=== PATIENT | female | born 1990 | race Caucasian/White ===

== ENCOUNTER 2021-03-01 11:40 | Emergency (ER) | payer MEDICAID, SELFPAY ==
[2021-03-01 11:44] VITALS: BP 109/83; PULSE 63; RESP 16; TEMP 36.7; O2SAT 98; BMI 41.3
--- NOTE | 2021-03-01 13:06 | ED.GENADULT ---
HPI - General Adult General Chief complaint: General Medical Stated complaint: hemorrhoids Time Seen by Provider: 03/01/21 13:06 History of Present Illness HPI narrative: Patient with history of hemorrhoids complains that they are slightly more swollen but they are sometimes bleeding, they are not particularly painful and she is here to be checked Related Data Previous Rx's Medication Instructions Recorded docusate sodium 100 mg capsule 100 mg PO BID PRN #20 cap 03/01/21 (Colace) hydrocortisone 2.5 % topical cream 1 appl SD DAILY PRN #30 g 03/01/21 with perineal applicator (Procto-Med HC) hydrocortisone acetate 25 mg 25 mg SD BID PRN #12 ea 03/01/21 rectal suppository (Anusol-HC) Allergies Allergy/AdvReac Type Severity Reaction Status Date / Time No Known Allergies Allergy Mild NOT Unverified 03/18/20 16:45 APPLICABLE Review of Systems Review of Systems: Positive for hemorrhoids Negatives are no fever no chills no dizziness no weakness no fainting no feeling faint no headache no neck pain no chest pain no abdominal pain no nausea vomiting or diarrhea no constipation no skin rashes Yes all other systems are reviewed and are negative Physical Exam Vital Signs: Vital Signs: Last Vital Signs Temp 98.1 F 03/01/21 11:44 Pulse 63 03/01/21 11:44 Resp 16 03/01/21 11:44 BP 109/83 03/01/21 11:44 Pulse Ox 98 03/01/21 11:44 Body Mass Index 41.3 General appearance no acute distress The eyes no pallor The pharynx mucous membranes are moist no pallor The neck is supple Respiratory no distress Abdomen soft nontender Rectal exam there are external hemorrhoids which at this point are not bleeding their pinkish in color, there is no thrombosed hemorrhoid, internal exam was D for Extremities full range of motion x4 Skin no rash Course Course Course Narrative: Patient with external hemorrhoids that are not bleeding now, no thrombosed hemorrhoids is recommend to follow with surgeon and given symptomatic treatment Discharge Plan Discharge Clinical Impression: Hemorrhoids Patient Disposition: Home, Self-Care Additional Instructions: Do frequent warm soaks and bath, use suppository and creams as directed Use stool softener Follow with surgeon for further evaluation Return any time if worse Prescriptions: New hydrocortisone acetate [Anusol-HC] 25 mg suppository 25 mg SD BID PRN (Reason: hemorrhoids) Qty: 12 RF: 0 hydrocortisone [Procto-Med HC] 2.5 % cream with perineal applicator 1 appl SD DAILY PRN (Reason: hemorrhoids) Qty: 30 RF: 0 docusate sodium [Colace] 100 mg capsule 100 mg PO BID PRN (Reason: Stool softener) Qty: 20 RF: 0 Referrals: Neftali Paz MD [Physician] - 2 days (Chronic hemorrhoids) Interventions: ED Discharge Assessment Last Done: 03/01/21 13:44 Discharge Date/Time: 03/01/21 13:45
== END 2021-03-01 13:45 | disposition home or self-care (01) ==
PROVIDERS: Emergency Provider Emergency Medicine; PCP Internal Medicine
DX: K64.9 Unspecified hemorrhoids (principal)
CPT/HCPCS: 99283

== ENCOUNTER 2022-04-02 15:44 | Emergency (ER) | payer MEDICAID, SELFPAY ==
--- NOTE | ~2022-04-02 | XR_ITS ---
EXAMINATION: XR CHEST CLINICAL INFORMATION: Cough COMPARISON: None TECHNIQUE: 2 views of the chest were obtained. FINDINGS: Mild interstitial prominence. No focal consolidation or mass. No pleural effusion or pneumothorax. Normal cardiomediastinal silhouette. Regional skeleton intact. XR/XR chest 2V IMPRESSION: Mild interstitial prominence. This could reflect subtle bronchitis, interstitial pneumonitis, or reactive airways disease.
[2022-04-02 15:48] VITALS: BMI 41.5
--- NOTE | 2022-04-02 15:48 | ECG_ITS ---
Test Reason : CHEST PAIN Blood Pressure : / mmHG Vent. Rate : 083 BPM Atrial Rate : 083 BPM P-R Int : 150 ms QRS Dur : 086 ms QT Int : 362 ms P-R-T Axes : 044 046 042 degrees QTc Int : 425 ms Normal sinus rhythm Normal ECG No previous ECGs available Referred By: Generic ED Physician Electronically Signed By:JEANINE BURKETT
[2022-04-02 16:35] VITALS: BP 115/79; PULSE 74; RESP 16; TEMP 35.9; O2SAT 99; BMI 40.6
--- NOTE | 2022-04-02 17:02 | ED_ITS ---
HPI - Asthma General Chief Complaint: Asthma Stated Complaint: weezing, chest pain Time Seen by Provider: 04/02/22 17:02 History of Present Illness HPI Narrative: Patient complains of intermittent wheezing over the last week associated with cough runny nose congestion, she does get some pain in her chest when she coughs but only when she coughs At this point in time she has no shortness of breath no chest tightness and no wheezing, it has been coming and going it is worst at night Related Data Previous Rx's Medication Instructions Recorded docusate sodium 100 mg capsule 100 mg PO BID PRN Stool softener 03/01/21 (Colace) #20 caps hydrocortisone 2.5 % topical cream 1 appl NV DAILY PRN hemorrhoids 03/01/21 with perineal applicator #30 grams (Procto-Med HC) hydrocortisone acetate 25 mg 25 mg NV BID PRN hemorrhoids #12 ea 03/01/21 rectal suppository (Anusol-HC) albuterol sulfate 90 mcg/actuation 2 puff inhalation Q4-6H PRN 04/02/22 aerosol inhaler shortness of breath or wheezing #8.5 grams doxycycline hyclate 100 mg capsule 100 mg PO BID 7 days #14 caps 04/02/22 oxymetazoline 0.05 % nasal spray 3 spray intranasal Q12H Nasal 04/02/22 congestion 4 days #22 mL prednisone 20 mg tablet 60 mg PO DAILY 4 days #12 tabs 04/02/22 Allergies Allergy/AdvReac Type Severity Reaction Status Date / Time No Known Allergies Allergy Mild NOT Unverified 03/18/20 16:45 APPLICABLE Review of Systems Review of Systems: Positive for runny nose cough asthma symptoms Negative no fever no chills no dizziness no weakness no fainting no feeling faint no headache no neck pain no chest pain other than when she coughs no palpitations no abdominal pain no nausea vomiting or diarrhea no dysuria no skin rash no joint swelling no calf pain no leg swelling Yes all other systems are reviewed and are negative PMFSH Past Medical History Source: nursing notes reviewed Social History Social History Advance Directives: No Advance Directives Information Provided: Yes Physical Exam Vital Signs: Vital Signs: Last Vital Signs Temp 96.7 F L 04/02/22 16:35 Pulse 74 04/02/22 16:35 Resp 16 04/02/22 16:35 BP 115/79 04/02/22 16:35 Pulse Ox 99 04/02/22 16:35 O2 Del Method 04/02/22 16:35 BMI result Body Mass Index 40.6 General appearance is no acute distress The eyes no redness or discharge The pharynx is clear and moist no redness swelling or exudate, voice is normal, uvula midline Sinuses are nontender Neck is supple Chest clear to auscultation bilateral Heart no murmur Abdomen soft nontender Extremities full range of motion x4 no, no calf tenderness or swelling no edema Skin no rash Course Course Course Narrative: EKG done in triage is normal sinus rhythm, no acute ischemic changes no ST changes, intervals were normal, QT was normal patient was comfortable with normal vital signs normal exam Her chest pain is only at certain times with cough there is no exertional chest pain or or any other chest pain Chest x-ray was negative, COVID test was negative and patient was discharged MDM - Asthma Lab Data Labs: Lab Results 04/02/22 Range/Units 17:25 COVID-19 (JAMES) Negative (Negative) COVID-19 Clin Com See Note Discharge Plan Discharge Clinical Impression: Asthma, Bronchitis Patient Disposition: Home, Self-Care Additional Instructions: Chest x-ray was normal, vital signs were normal, your not wheezing now, and physical exam was normal For the intermittent wheezing we have started prednisone and I wrote for an extra inhaler in case he run out For nasal congestion at night you could try oxymetazoline spray available [id number], 2 or 3 sprays in each nostril before bedtime for relief of n lawrence congestion You can use Motrin if needed for any aches or pains Doxycycline antibiotic for possible bronchitis Return any time for difficulty breathing, any worse condition any concerns Prescriptions: New albuterol sulfate 90 mcg/actuation HFA aerosol inhaler 2 puff inhalation Q4-6H PRN (Reason: shortness of breath or wheezing) Qty: 8.5 0RF doxycycline hyclate 100 mg capsule 100 mg PO BID 7 Days Qty: 14 0RF prednisone 20 mg tablet 60 mg PO DAILY 4 Days Qty: 12 0RF oxymetazoline 0.05 % spray,non-aerosol 3 spray intranasal Q12H 4 Days Qty: 22 0RF No Action hydrocortisone acetate [Anusol-HC] 25 mg suppository 25 mg NV BID PRN (Reason: hemorrhoids) Qty: 12 0RF hydrocortisone [Procto-Med HC] 2.5 % cream with perineal applicator 1 appl NV DAILY PRN (Reason: hemorrhoids) Qty: 30 0RF docusate sodium [Colace] 100 mg capsule 100 mg PO BID PRN (Reason: Stool softener) Qty: 20 0RF Interventions: ED Discharge Assessment Last Done: 04/02/22 18:52 Discharge Date/Time: 04/02/22 18:53
[2022-04-02 18:10] LABS: COVID-19 Test Negative (Negative); IDNOW Serial# 9DB6401D
[2022-04-02] MEDS: predniSONE 20 MG TABLET 60 MG PO (18:50)
== END 2022-04-02 18:53 | disposition home or self-care (01) ==
PROVIDERS: Emergency Provider Emergency Medicine Emergency Medical Services
DX: J45.909 Unspecified asthma, uncomplicated (principal); R07.89 Other chest pain; Z20.822 Contact with and (suspected) exposure to COVID-19; Z79.899 Other long term (current) drug therapy
CPT/HCPCS: 71046; 87635; 93005; 99283

== ENCOUNTER 2023-02-22 23:20 | Emergency (ER) | payer MEDICAID, SELFPAY ==
[2023-02-22 23:36] VITALS: BP 131/85; PULSE 72; RESP 19; TEMP 36.3; O2SAT 97; BMI 44.7
--- NOTE | 2023-02-23 00:26 | ED.GENADULT ---
HPI - General Adult General Chief complaint: General Medical Stated complaint: Bloody Stool Time Seen by Provider: 02/22/23 23:58 Source: patient Mode of arrival: ambulatory History of Present Illness HPI narrative: 32-year-old female with a history of constipation and hemorrhoids presents with an isolated episode of noting blood mixed with her stool once this evening, there was a small amount of blood within the toilet bowl and on the toilet paper but no contamination of her underwear. Related Data Previous Rx's Medication Instructions Recorded docusate sodium 100 mg capsule 100 mg PO BID PRN Stool softener 03/01/21 (Colace) #20 caps hydrocortisone 2.5 % topical cream 1 appl SC DAILY PRN hemorrhoids 03/01/21 with perineal applicator #30 grams (Procto-Med HC) hydrocortisone acetate 25 mg 25 mg SC BID PRN hemorrhoids #12 ea 03/01/21 rectal suppository (Anusol-HC) albuterol sulfate 90 mcg/actuation 2 puff inhalation Q4-6H PRN 04/02/22 aerosol inhaler shortness of breath or wheezing #8.5 grams doxycycline hyclate 100 mg capsule 100 mg PO BID 7 days #14 caps 04/02/22 oxymetazoline 0.05 % nasal spray 3 spray intranasal Q12H Nasal 04/02/22 congestion 4 days #22 mL prednisone 20 mg tablet 60 mg PO DAILY 4 days #12 tabs 04/02/22 Allergies Allergy/AdvReac Type Severity Reaction Status Date / Time No Known Allergies Allergy Mild NOT Unverified 03/18/20 16:45 APPLICABLE Review of Systems Review of Systems: pertinent positives and negatives as stated in HPI PMFSH Past Medical History Source: nursing notes reviewed Social History Social History Advance Directives: No Advance Directives Information Provided: Yes Physical Exam ED Vital Signs: Vital Signs - 24 hr 02/22/23 23:36 Temperature 97.4 F Pulse Rate 72 Respiratory Rate 19 Blood Pressure 131/85 Pulse Oximetry 97 Oxygen Delivery Method Room Air BMI result Body Mass Index 44.7 VITAL SIGNS: Reviewed. GENERAL: elevated BMI,Well developed, well nourished, in no acute distress. HEAD: Normocephalic/atraumatic EYES: PERRLA, EOMI LUNGS: Normal breath sounds. No adventitious sounds or accessory muscle use. SpO2<97> CARDIOVASCULAR: Regular rate and rhythm without noted murmurs ABDOMEN: Soft, non-tender, non-distended with bowel sounds. 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 EXTREMITIES: No cyanosis, clubbing or edema. SKIN: Inspection of the skin reveals no rashes NEUROLOGIC: Alert and oriented x 4. Strength and sensation to light touch were grossly intact x 4. Medical Decision Making Medical Decision Making MDM Narrative: 32-year-old female with history and clinical presentation consistent with external hemorrhoidal bleeding likely secondary to her history of constipation which she reports that she had to strain today in order to have the bowel movement. For the counseled patient on the use of [id number] MiraLax on a daily basis until she has daily, soft stools and then this will subsequently relieve some of the inflamed external hemorrhoids. She was also encouraged to follow-up with primary care doctor and discuss the possibility of a referral with general surgery for possible hemorrhoid removal. I have no concerns that this is a lower GI bleed. Patient is completely hemodynamically stable. Differential Diagnosis Differential Diagnoses: The differential diagnosis associated with the presentation includes Please see the discussion above Discharge Plan Discharge Clinical Impression: Constipation, Bleeding hemorrhoids, External hemorrhoids Patient Disposition: Home, Self-Care Instructions: Constipation (ED), Hemorrhoids (ED), High Fiber Diet (ED), Fleet Enema (ED) Additional Instructions: 1. Resume all home medications as prescribed. 2. Recommend increasing the amount of water that you drink in addition to raw fruits and vegetables as well as using MiraLax, available [id number], daily in an effort to achieve daily, soft bowel movements. 3. Follow-up with your primary care provider and discuss the possibility of a referral to see General surgery for possible hemorrhoid removal. Return to the ER for any worsening symptoms. Prescriptions: No Action hydrocortisone acetate [Anusol-HC] 25 mg suppository 25 mg SC BID PRN (Reason: hemorrhoids) Qty: 12 0RF hydrocortisone [Procto-Med HC] 2.5 % cream with perineal applicator 1 appl SC DAILY PRN (Reason: hemorrhoids) Qty: 30 0RF docusate sodium [Colace] 100 mg capsule 100 mg PO BID PRN (Reason: Stool softener) Qty: 20 0RF albuterol sulfate 90 mcg/actuation HFA aerosol inhaler 2 puff inhalation Q4-6H PRN (Reason: shortness of breath or wheezing) Qty: 8.5 0RF doxycycline hyclate 100 mg capsule 100 mg PO BID 7 Days Qty: 14 0RF prednisone 20 mg tablet 60 mg PO DAILY 4 Days Qty: 12 0RF oxymetazoline 0.05 % spray,non-aerosol 3 spray intranasal Q12H 4 Days Qty: 22 0RF Interventions: ED Discharge Assessment Last Done: 02/23/23 00:38
== END 2023-02-23 00:40 | disposition home or self-care (01) ==
PROVIDERS: Emergency Provider Student in an Organized Health Care Education/Training Program
DX: K59.00 Constipation, unspecified (principal); R19.5 Other fecal abnormalities; K64.4 Residual hemorrhoidal skin tags; Z79.899 Other long term (current) drug therapy
CPT/HCPCS: 99282

== ENCOUNTER 2023-09-01 08:42 | Emergency (ER) | payer MEDICAID, SELFPAY ==
[2023-09-01 08:48] VITALS: BP 108/73; PULSE 67; RESP 16; TEMP 36.3; O2SAT 93; BMI 43.2
--- NOTE | 2023-09-01 09:28 | ED.FEMALEGU ---
HPI - Female Genitourinary General Chief complaint: Vaginal Bleeding Stated complaint: vaginal bleeding Time Seen by Provider: 09/01/23 09:27 Source: patient Mode of arrival: ambulatory Limitations: no limitations History of Present Illness HPI Narrative: 32-year-old female presents with complaints of intermittent vaginal bleeding since Sunday, 3 days ago, she tells me this started after intercourse. She does not know if this is her menses as her menses ended 5 days ago. Patient denies associated pain. She reports she has been changing her tampon every 4 hours. Not completely saturated. She just wants to make sure there is nothing wrong. Patient is not on control. She has not on blood thinners. No abdominal pain, nausea, vomiting, headache, vision changes, dizziness, weakness chest pain, shortness of breath. No concerns for STDS or she says Related Data Previous Rx's Medication Instructions Recorded docusate sodium 100 mg capsule 100 mg PO BID PRN Stool softener 03/01/21 (Colace) #20 caps hydrocortisone 2.5 % topical cream 1 appl NV DAILY PRN hemorrhoids 03/01/21 with perineal applicator #30 grams (Procto-Med ) hydrocortisone acetate 25 mg 25 mg NV BID PRN hemorrhoids #12 ea 03/01/21 rectal suppository (Anusol-) albuterol sulfate 90 mcg/actuation 2 puff inhalation Q4-6H PRN 04/02/22 aerosol inhaler shortness of breath or wheezing #8.5 grams doxycycline hyclate 100 mg capsule 100 mg PO BID 7 days #14 caps 04/02/22 oxymetazoline 0.05 % nasal spray 3 spray intranasal Q12H Nasal 04/02/22 congestion 4 days #22 mL prednisone 20 mg tablet 60 mg (3 x 20 mg) PO DAILY 4 days 04/02/22 #12 tabs Allergies Allergy/AdvReac Type Severity Reaction Status Date / Time No Known Allergies Allergy Mild NOT Verified 09/01/23 08:53 APPLICABLE Review of Systems Review of Systems: Yes all other systems are reviewed and are negative PMFSH Past Medical History Attestation statement: The following information was validated with the patient. Source: old records reviewed and nursing notes reviewed Social History Social History Advance Directives: No Advance Directives Information Provided: No Physical Exam Vital Signs: Vital Signs: Last Vital Signs Temp 97.4 F 09/01/23 08:48 Pulse 67 09/01/23 08:48 Resp 16 09/01/23 08:48 BP 108/73 09/01/23 08:48 Pulse Ox 93 09/01/23 08:48 O2 Del Method Room Air 09/01/23 08:48 BMI result Body Mass Index 43.2 vss Appearance: Alert.? Oriented X3.? No acute distress.? Head: Normocephalic, atraumatic, no step-offs or deformities Eyes: Pupils equal, round and reactive to light.? CVS: Normal heart rate and rhythm.? Pulses normal.? Respiratory: No respiratory distress.? Breath sounds normal.? Abdomen: Soft and nontender.? Skin: Skin warm and dry.? Normal skin color.? Normal skin turgor.? Extremities: No lower extremity edema.? No calf ttp. 5/5 strength to bilateral upper and lower extremities Sensative: no bleeding in the vaginal vanal. No laceration. Some white d/c thin. Normal external genitalia Neuro: Oriented X 3.? No motor deficit.? No sensory deficit. CN 2-12 intact Course Reevaluation(s) Reevaluation #1: CBC unremarkable. Chemistry no acute findings. STD screens pending patient to self swab. Swabs pending. Patient will be called when the results are positive. This bleeding has been ongoing since Sunday, no acute blood loss anemia, patient not tachycardic, hypoxic, having no symptoms of acute blood loss anemia no need for repeat a H& H. There was no bleeding on my exam. Patient to follow-up with PCP and OBGYN Time: 09:57 Medical Decision Making Medical Decision Making [facility] Narrative: 928 32-year-old female presents with concerns of painless vaginal bleeding status post intercourse on Sunday intermittent in nature. Physical exam no bleeding in the vaginal vanal. No laceration. Some white d/c thin. Concerns for mechanical trauma to the vaginal canal therefore resulting in bleeding. Other differentials include menorrhagia. Unlikely acute blood loss anemia, hypovolemic shok. Malignancy remains on the differential postcoital bleeding. Unlikely miscarriage, ectopic . No signs of ovarian torsion Plan at this time labs. Differential Diagnosis Differential Diagnoses: The differential diagnosis associated with the presentation includes Concerns for mechanical trauma to the vaginal canal therefore resulting in bleeding. Other differentials include menorrhagia. Unlikely acute blood loss anemia, hypovolemic shok. Malignancy remains on the differential postcoital bleeding. Unlikely miscarriage, ectopic . No signs of ovarian torsion Admission/Observation Consideration of admission/observation: Escalation of care including admission/observation considered unlikely Lab Data MDM Lab Attestation statement: I reviewed the patient's lab results. 09/01/23 09:28 09/01/23 09:28 Labs: Lab Results 09/01/23 Range/Units 09:28 WBC 9.3 (4.8-10.8) X10*3/uL RBC 4.74 (4.20-5.50) X10*6/uL Hgb 13.0 (12.0-16.0) g/dl Hct 40.5 (37.0-47.0) % MCV 85.4 (80.0-98.0) fL MCH 27.4 (27.0-33.0) pg MCHC 32.1 (31.0-35.0) g/dl RDW 14.8 (11.0-16.0) % Plt Count 446 H (160-400) X10*3/uL MPV 9.3 L (9.4-12.3) fL Immature Gran % (Auto) 0.4 (0.0-0.4) % Neut % (Auto) 52.4 (45-73) % Lymph % (Auto) 29.9 (20-40) % [place] % (Auto) 11.8 H (2-11) % Eos % (Auto) 4.6 H (0-4) % Baso % (Auto) 0.9 (0-2) % Lymph # (Auto) 2.8 (1.2-4.9) X10*3/uL [place] # (Auto) 1.1 (0.1-1.2) X10*3/uL Eos # (Auto) 0.4 (0.0-0.4) X10*3/uL Baso # (Auto) 0.1 (0.0-0.2) X10*3/uL Abs Immat Gran (auto) 0.04 H (0.00-0.03) X10*3/uL Absolute Neuts (auto) 4.9 (2.0-8.3) x10*3/uL Absolute Nucleated RBC 0.000 (0.0-0.012) X10*3/uL Nucleated RBC % (auto) 0.0 (0.0-0.2) /100WBC Sodium 141 (135-145) mmol/L Potassium 4.2 (3.3-5.1) mmol/L Chloride 107 (96-108) mmol/L Carbon Dioxide 27 (22-29) mmol/L Anion Gap 11 L (12-20) BUN 14 (9-16) mg/dL Creatinine 0.77 (0.5-1.4) mg/dL Estim Creat Clear Calc 114.1 Estimated GFR > 60 Random Glucose 92 (60-115) mg/dL Calcium 10.3 H (8.4-10.2) mg/dL Total Bilirubin 0.3 (0.0-1.0) mg/dL AST 27 (5-31) U/L ALT 37 H (0-31) U/L Alkaline Phosphatase 101 (39-117) U/L Total Protein 8.1 H (6.5-8.0) g/dL Albumin 4.1 (3.5-5.0) g/dL External Record Review External record reviewed: Inpatient record, Office record, Outpatient record, Prior outpatient labs, Prior outpatient radiology, Primary care record and Outside ED record Tests considered The following testing was considered but not selected: No active bleeding or pelvic pain no abdominal pain either. No indication for CT abdomen and pelvis or ultrasound. Social Determinants Patient?s care significantly limited by Social Determinants of Health including: Other Social Determinant of Health Critical Care Time Critical Care Time Critical Care Time: No Discharge Plan Discharge Clinical Impression: PCB (post coital bleeding) Patient Disposition: Home, Self-Care Instructions: Dysfunctional Uterine Bleeding (ED) Additional Instructions: Take your medications as prescribed. If you were prescribed antibiotics today, it is important that you take your medication to their entirety, do not skip any doses, do not finish them early. Follow-up with your primary care provider this week. Return to the emergency department with new or worsening symptoms. Such as fevers, chills, chest pain, shortness of breath, nausea, vomiting, dizziness, headache, vision changes, lethargy In case of emergency call 911 Prescriptions: No Action hydrocortisone acetate [Anusol-HC] 25 mg suppository 25 mg NV BID PRN (Reason: hemorrhoids) Qty: 12 0RF hydrocortisone [Procto-Med HC] 2.5 % cream with perineal applicator 1 appl NV DAILY PRN (Reason: hemorrhoids) Qty: 30 0RF docusate sodium [Colace] 100 mg capsule 100 mg PO BID PRN (Reason: Stool softener) Qty: 20 0RF albuterol sulfate 90 mcg/actuation HFA aerosol inhaler 2 puff inhalation Q4-6H PRN (Reason: shortness of breath or wheezing) Qty: 8.5 0RF doxycycline hyclate 100 mg capsule 100 mg PO BID 7 Days Qty: 14 0RF prednisone 20 mg tablet 60 mg PO DAILY 4 Days Qty: 12 0RF oxymetazoline 0.05 % spray,non-aerosol 3 spray intranasal Q12H 4 Days Qty: 22 0RF Referrals: [facility] [Provider Group] - 1 day [place] [Primary Care Provider] - 2 days Stand Alone Forms: Work/School Release
[2023-09-01 09:32] LABS: MANUAL DIFF FLAG NO
[2023-09-01 09:33] LABS: Basophils Absolute Auto 0.1 X10*3/uL (0.0-0.2); Basophils Percent Auto 0.9 % (0-2); Eosinophils Absolute Auto 0.4 X10*3/uL (0.0-0.4); Eosinophils Percent Auto 4.6 % (0-4); Hematocrit 40.5 % (37.0-47.0); Imm Gran Abs Auto 0.04 X10*3/uL (0.00-0.03); Imm Gran Pct Auto 0.4 % (0.0-0.4); Lymphocytes Absolute Auto 2.8 X10*3/uL (1.2-4.9); Lymphocytes Percent Auto 29.9 % (20-40); Mean Corpuscular HGB Conc 32.1 g/dl (31.0-35.0); Mean Corpuscular Hemoglobin 27.4 pg (27.0-33.0); Mean Corpuscular Volume 85.4 fL (80.0-98.0); Mean Platelet Volume 9.3 fL (9.4-12.3); Monocytes Absolute Auto 1.1 X10*3/uL (0.1-1.2); Monocytes Percent Auto 11.8 % (2-11); Neutrophils Absolute Auto 4.9 x10*3/uL (2.0-8.3); Neutrophils Percent Auto 52.4 % (45-73); Platelet Count 446 X10*3/uL (160-400); Red Blood Count 4.74 X10*6/uL (4.20-5.50); Red Cell Distribution Width 14.8 % (11.0-16.0); White Blood Count 9.3 X10*3/uL (4.8-10.8)
[2023-09-01 09:54] LABS: Alanine Aminotransferase 37 U/L (0-31); Albumin Level 4.1 g/dL (3.5-5.0); Alkaline Phosphatase 101 U/L (39-117); Anion Gap 11 (12-20); Aspartate Amino Transferase 27 U/L (5-31); Bilirubin Total 0.3 mg/dL (0.0-1.0); Blood Urea Nitrogen 14 mg/dL (9-16); Calcium 10.3 mg/dL (8.4-10.2); Carbon Dioxide 27 mmol/L (22-29); Chloride 107 mmol/L (96-108); Creatinine Clr Calc Pharmacy 114.1; Estimated Glomerular Filt Rate > 60; Glucose Random 92 mg/dL (60-115); Potassium 4.2 mmol/L (3.3-5.1); Sodium 141 mmol/L (135-145); Total Protein 8.1 g/dL (6.5-8.0)
[2023-09-01 09:59] LABS: HCG Quantitative < 2 mIU/mL
[2023-09-01 11:00] LABS: Appearance Urine Cloudy; Color Urine Yellow; Glucose Urine UA Negative (Negative); Leukocyte Esterase Urine Negative (Negative); Nitrite Urine Negative (Negative); UMIC TRIGGER UACC YES; Urine Blood Moderate (2+) (Negative); Urine Ketones Negative (Negative); Urine Protein Negative (Neg-Trace)
[2023-09-01 11:01] LABS: UPreg QC Valid YES; Urine Pregnancy NEGATIVE (NEGATIVE)
[2023-09-01 11:34] LABS: Bacteria Urine Trace (None Seen); Hyaline Casts Urine 0-2 /LPF (0-2); WBC Urine 0-5 /HPF (0-5)
[2023-09-01 12:36] LABS: CT PCR NOT DETECTED (Not Detect.); NG PCR NOT DETECTED (Not Detect.)
[2023-09-02 15:28] LABS: BV Int Neg Control Negative (Negative); BV Int Pos Control Positive (Positive)
== END 2023-09-01 10:53 | disposition home or self-care (01) ==
PROVIDERS: Physician Assistant; Emergency Provider Emergency Medicine Emergency Medical Services
DX: N93.0 Postcoital and contact bleeding (principal); N93.9 Abnormal uterine and vaginal bleeding, unspecified; Z72.89 Other problems related to lifestyle
CPT/HCPCS: 0353U; 36415; 80053; 81001; 81003; 81025; 84702; 85025; 87480; 87510; 87660; 99282; 99283

== ENCOUNTER 2023-09-13 07:56 | Outpatient (REF) | payer MEDICAID, SELFPAY ==
[2023-09-22 09:18] LABS: HPV mRNA E6/E7 rflx Not Detected (Not Detected)
== END 2023-09-13 07:57 | disposition home or self-care (01) ==
LOC: HO.LNP 07:56
PROVIDERS: Visit Provider Obstetrics & Gynecology
DX: N93.9 Abnormal uterine and vaginal bleeding, unspecified (principal)
CPT/HCPCS: 87624; 88142; 99202

== ENCOUNTER 2023-09-13 07:56 | Outpatient (AMB) | payer MEDICAID, SELFPAY ==
--- NOTE | 2023-09-13 08:00 | A.OFFVIS_ITS ---
Intake Vital Signs 09/13/23 08:01 Height 5 ft 1 in Weight 227 lb 1.218 oz BMI 42.9 BP 108/70 Intake Visit Reasons: ER follow up Manager Biologics Required: No Information Interpreted: non-clinical & clinical It Integration Architect: It Integration Architect Present (Mendy LOAIZA) Accompanied by: Self / Same As Patient Allergies No Known Allergies Allergy (Mild, Verified 09/13/23 08:03) NOT APPLICABLE Is last menstrual period known: Yes Last menstrual period: 08/23/23 HPI HPI Comments History of Present Illness Details Presenting as a follow-up from emergency room visit. The patient went to the ER on 09/01/2023 complaining of abnormal prolonged heavy menstrual cycle. The following workup was done: H&H 13/40.5, hCG was less than 2, GC/CT was negative, BV panel was negative for Trichomonas and Danay in positive for Gardnerella vaginalis. The patient does not have any vaginal discharge associated with malodor. Last Pap smear was done in 2014 and was negative PFSH Medical History Hypothyroidism Surgical History Hx of section Social History Household Members: Significant Other and Children Housing: Apartment Alcohol intake: current Alcohol intake frequency: holidays/special occasions only Patient Tobacco Use Status: Never used Tobacco Current occupational status: unemployed Sexually active: Yes Sexual orientation: Straight/Heterosexual Gender identity: Female Female Reproductive History Menstrual Date of last menstrual period: 08/23/23 control method: none Total pregnancies: 3 Full term: 3 Number of Living Children: 3 Review of Systems Const All systems reviewed & are unremarkable except as noted in HPI and below Card Reports as per HPI Resp Reports as per HPI GI Reports as per HPI and Reports no additional complaints Reports as per HPI Physical Exam Vital Signs: Last Vital Signs BP 108/70 09/13/23 08:01 BMI result Body Mass Index 42.9 Const General: cooperative, healthy appearing and comfortable Chest Chest palpation & inspection: normal inspection of the chest and normal palpation of entire chest wall Breast/axilla inspection: normal inspection of the breasts and normal inspection of the axillae Breast/axilla palpation: normal palpation of the breasts, normal palpation of the axillae and no axillary lymphadenopathy Resp Effort & Inspection: normal respiratory effort Auscultation: clear to auscultation bilaterally Percussion: percussion normal Cardio Palpation: normal PMI Rate: regular rate Rhythm: regular rhythm Heart sounds: no murmurs and no rubs Peripheral pulses: Peripheral pulses 2+ throughout GI Inspection: Yes normal to inspection Palpation (GI): Soft to palpation, nontender, no guarding, not rigid and No hepatosplenomegaly present Percussion: Yes normal to percussion Auscultation: normal bowel sounds Rectal Exam - Female: deferred General: Yes bladder normal to palpation External Female Exam: No lesion Speculum Exam - Vagina: normal appearance of the vagina, normal palpation, normal vaginal discharge and not erythematous Speculum Exam - Cervix: normal appearance of the cervix and normal palpation Bimanual exam- vagina & uterus: normal bimanual exam, normal palpation, uterine size normal, bladder normal to palpation, consistency normal and normal palpation Bimanual Exam- Adnexa, other: normal adnexae, no masses and no tenderness Assessment & Plan Assessment & Plan (1) Abnormal uterine bleeding (AUB): Code(s): N93.9 - Abnormal uterine and vaginal bleeding, unspecified Plan: Co testing done, GC and chlamydia were taken in the emergency room and were negative. CBC, TSH, prolactin, HCG, and pelvic ultrasound ordered. Discussed with the patient the different causes of abnormal bleeding including thyroid disorders, uterine and ovarian pathology, endometrial hyperplasia, carcinoma and other potential causes. Discussed with the patient the work up including CBC (to r/o anemia), prolactin, TSH, pelvic Ultrasound, endometrial biopsy to r/o endometrial pathology. All questions answered and the patient verbalized understanding. Instructed the patient to schedule an appointment for an endometrial biopsy in 2 weeks. Orders: Orders Prolactin Today N93.9 - Abnormal uterine and vaginal bleeding, unspecified HCG Quantitative Today N93.9 - Abnormal uterine and vaginal bleeding, unspecified Complete Blood Count no Diff Today N93.9 - Abnormal uterine and vaginal bleeding, unspecified TSH reflex Free T4 Today N93.9 - Abnormal uterine and vaginal bleeding, u nspecified US pelvic and transvaginal Today N93.9 - Abnormal uterine and vaginal bleeding, unspecified Coding Level of Care Code New Pt Level 3 (93628) Diagnoses Abnormal uterine bleeding (AUB) N93.9
[2023-09-13 08:01] VITALS: BP 108/70; BMI 42.9
== END 2023-09-13 08:27 | disposition home or self-care (01) ==
PROVIDERS: Visit Provider Obstetrics & Gynecology
DX: N93.9 Abnormal uterine and vaginal bleeding, unspecified (principal)
CPT/HCPCS: 99203

== ENCOUNTER 2023-09-13 08:31 | Outpatient (REF) | payer MEDICAID, SELFPAY ==
[2023-09-13 09:27] LABS: Hematocrit 38.7 % (37.0-47.0); Hemoglobin 12.7 g/dl (12.0-16.0); Mean Corpuscular HGB Conc 32.8 g/dl (31.0-35.0); Mean Corpuscular Hemoglobin 27.4 pg (27.0-33.0); Mean Corpuscular Volume 83.4 fL (80.0-98.0); Platelet Count 389 X10*3/uL (160-400); Red Blood Count 4.64 X10*6/uL (4.20-5.50); Red Cell Distribution Width 14.8 % (11.0-16.0); White Blood Count 8.1 X10*3/uL (4.8-10.8)
[2023-09-13 10:34] LABS: HCG Quantitative < 2 mIU/mL; TSH reflex Free T4 25.21 uIU/mL (0.32-4.0)
[2023-09-13 11:05] LABS: Free T4 (Free Thyroxine) 0.54 ng/dL (0.71-1.85)
[2023-09-14 09:33] LABS: Prolactin 11.2 ng/mL
== END 2023-09-13 08:32 | disposition home or self-care (01) ==
LOC: HO.LAB 08:31
PROVIDERS: Visit Provider Obstetrics & Gynecology
DX: N93.9 Abnormal uterine and vaginal bleeding, unspecified (principal)
CPT/HCPCS: 36415; 84146; 84439; 84443; 84702; 85027; 87624; 88142; 99202

== ENCOUNTER 2023-10-02 10:46 | Outpatient (REF) | payer MEDICAID, SELFPAY ==
--- NOTE | ~2023-10-02 | US_ITS ---
EXAMINATION: US PELVIS CLINICAL INFORMATION: Abnormal uterine and vaginal bleeding. COMPARISON: None available. TECHNIQUE: Ultrasound of the pelvis is performed using both transabdominal and transvaginal transducers along with Doppler. Transvaginal imaging is performed due to inadequate visualization transabdominally. FINDINGS: Anteverted uterus measuring 10.7 x 4.1 x 5 cm. No uterine lesion. Endometrium measures 1 m in thickness without discrete focal abnormality. A few nabothian cysts overlie the cervix. The ovaries are not visualized, the examination is limited secondary to patient body habitus and shadowing from overlying bowel gas. No free fluid. US/US pelvic and transvaginal IMPRESSION: 1. Limited examination due to patient body habitus and shadowing from overlying bowel gas. 2. The ovaries were not visualized. 3. Overall, normal appearance of the uterus and endometrium.
== END 2023-10-02 10:47 | disposition home or self-care (01) ==
LOC: HO.US 10:46
PROVIDERS: Visit Provider Obstetrics & Gynecology
DX: N93.9 Abnormal uterine and vaginal bleeding, unspecified (principal)
CPT/HCPCS: 76830; 76856

== ENCOUNTER 2023-10-24 12:18 | Outpatient (AMB) | payer MEDICAID, SELFPAY ==
--- NOTE | 2023-10-24 12:30 | MHC.OFFVIS ---
Vital Signs 10/24/23 12:34 Height 5 ft 1 in Weight 229 lb 4.492 oz BMI 43.3 BP 114/72 Intake Visit Reasons: EMB/ultra sound Results Public Relations Analyst Required: No Information Interpreted: non-clinical & clinical Building Cleaning Supervisor: Building Cleaning Supervisor Present (Mendy Davey FADIA) Accompanied by: Self / Same As Patient Allergies No Known Allergies Allergy (Mild, Verified 10/24/23 12:34) NOT APPLICABLE HPI Comments Details: Presenting for endometrial biopsy PFSH Medical History Hypothyroidism Surgical History Hx of section Social History Household Members: Significant Other and Children Housing: Apartment Alcohol intake: current Alcohol intake frequency: holidays/special occasions only Patient Tobacco Use Status: Never used Tobacco Current occupational status: unemployed Sexual orientation: Straight/Heterosexual Gender identity: Female Physical Exam Vital Signs: Last Vital Signs BP 114/72 10/24/23 12:34 BMI result Body Mass Index 43.3 Office Procedures Endometrial Biopsy Details: The patient was counseled regarding the indication and benefits of endometrial sampling to rule out endometrial pathology including not limited to endometrial hyperplasia or endometrial cancer and others; The alternatives (Either do nothing vs. hysteroscopy D&C) & the risks were discussed with the patient including but not limited: pain, uterine perforation, bleeding, infection, possible injury to bladder, bowel, ureter, possible need for blood transfusion with all its possible risks. The patient verbalized understanding all questions answered and signed consent. Urine test done in the office was negative The patient was placed into the dorsal lithotomy position; a speculum was inserted in the vagina. Using aseptic technique for the procedure, the cervix was cleansed with Betadine. The anterior lip of the cervix was grasped with a single tooth tenaculum. The uterus was sounded to 7 cm with a 4 mm Pipelle was used. Tissues samples were obtained and placed in formalin, in a patient labeled container and sent to the pathology department. At the end of the procedure, there was minimal bleeding noted The patient tolerated the procedure well and was discharged in good condition with the following instructions: Nothing in the vagina until the bleeding stops. No sex until the bleeding stops, to call if any of the following occurs: fever (>100.4), flu-like symptoms, abdominal pain, heavy bleeding, four smelling vaginal discharge. The patient was instructed to schedule a Follow up appointment in 2 weeks to discuss pathology results of the biopsy and treatment options. This note was generated with a voice recognition program. Some errors may have been overlooked during the review of this note. Sometimes these errors may affect the content or meaning of a given sentence. [id number] Biopsy Assessment & Plan Assessment & Plan (1) Abnormal uterine bleeding (AUB): Code(s): N93.9 - Abnormal uterine and vaginal bleeding, unspecified Category: Medical Plan: EMB done, see procedure Orders: Orders AMB Endometrial Biopsy Today N93.9 - Abnormal uterine and vaginal bleeding, unspecified Coding Level of Care Code Procedure Only Diagnoses Abnormal uterine bleeding (AUB) N93.9 CPT Codes Endometrial Biopsy - CPT: 55115-[id number] Biopsy ([id number])
[2023-10-24 12:34] VITALS: BP 114/72; BMI 43.3
== END 2023-10-24 13:19 | disposition home or self-care (01) ==
LOC: HO.HWS 12:18
PROVIDERS: Visit Provider Obstetrics & Gynecology
DX: N93.9 Abnormal uterine and vaginal bleeding, unspecified (principal)
CPT/HCPCS: 58100

== ENCOUNTER 2023-10-24 12:18 | Outpatient (REF) | payer MEDICAID, SELFPAY | END 2023-10-24 12:19 | disposition home or self-care (01) | LOC: HO.LNP 12:18 | PROVIDERS: Visit Provider Obstetrics & Gynecology | DX: N93.9 Abnormal uterine and vaginal bleeding, unspecified (principal) | CPT/HCPCS: 58100; 88305 ==

== ENCOUNTER 2024-01-10 11:25 | Outpatient (AMB) | payer MEDICAID, SELFPAY ==
--- NOTE | 2024-01-10 11:25 | MHC.OFFVIS ---
Intake Visit Reasons: EMB results Allergies No Known Allergies Allergy (Mild, Verified 10/24/23 12:34) NOT APPLICABLE HPI Comments Details: The patient is presenting for follow-up to discuss the results of her abnormal uterine bleeding workup and options of treatment. The following workup was done: H&H= 12.7/38.7 TSH was elevated, free T4 was low, the patient discuss the results with her PCP and her levothyroxine dose was increased. Prolactin, hCG, GC and chlamydia were negative. Endometrial biopsy pathology showed the following: Endometrium, biopsy: Secretory endometrium; negative for atypia, hyperplasia or malignancy Co testing was done was negative with many endometrial cells present. Pelvic ultrasound showed the following: IMPRESSION: 1. Limited examination due to patient body habitus and shadowing from overlying bowel gas. 2. The ovaries were not visualized. 3. Overall, normal appearance of the uterus and endometrium. [facility] Medical History Hypothyroidism Surgical History Hx of section Social History Household Members: Significant Other and Children Housing: Apartment Alcohol intake: current Alcohol intake frequency: holidays/special occasions only Patient Tobacco Use Status: Never used Tobacco Current occupational status: unemployed Sexual orientation: Straight/Heterosexual Gender identity: Female Review of Systems Const All systems reviewed & are unremarkable except as noted in HPI and below Reports as per HPI and Reports no additional complaints GI Reports no additional complaints Reports no additional complaints Telehealth Telehealth Telehealth Platform: Telephone Location of provider rendering services: practice address Location of patient: address on file Patient Identification confirmed using: Name, : Yes Telehealth method: video Patient verbally consented to treatment: Yes Patient verbally consented to billing insurance company: Yes Patient informed of any privacy concerns related to visit: Yes Assessment & Plan Assessment & Plan (1) Abnormal uterine bleeding (AUB): Code(s): N93.9 - Abnormal uterine and vaginal bleeding, unspecified Category: Medical Plan: Discussed with the patient the results of the work up done and options of treatment including Lysteda, control pills, Mirena IUD, endometrial ablation and hysterectomy. All pros, cons, risks and benefits if each option was discussed with the patient and the patient decided to go ahead with Mirena IUD so a more detailed discussion about it was conducted including mechanism of action, risks (uterine perforation, infection, injury to bladder, bowel, displacement, and others) benefits (hypo menorrhea, amenorrhea, ...). GC/CT were taken and were negative and the patient was instructed to schedule Mirena IUD insertion on day 1-5 of next cycle . All questions answered, the patient verbalized understanding I spent a total of 20 minutes reviewing the chart, talking to the patient via video and documenting in the medical record. Coding Level of Care Code Tele Est Pt Level 1 (50541) Diagnoses Abnormal uterine bleeding (AUB) N93.9
== END 2024-01-10 13:35 | disposition home or self-care (01) ==
LOC: HO.HWS 11:25
PROVIDERS: Visit Provider Obstetrics & Gynecology
DX: N93.9 Abnormal uterine and vaginal bleeding, unspecified (principal)
CPT/HCPCS: 99211

== ENCOUNTER → 2024-01-10 11:25 | Outpatient (BNVA) | payer MEDICAID, SELFPAY | PROVIDERS: Visit Provider Obstetrics & Gynecology ==

== ENCOUNTER 2025-06-19 10:29 | Outpatient (REF) | payer MEDICAID, SELFPAY ==
--- OUTSIDE RECORDS SUMMARY | 2025-06-19 10:00 | XMS_ITS | Encounter Summary ---
Author Organization [employer] Address [address] [place] [address] [address] [place] [address] Care Team Providers Care Seed Tester Name Role Phone Unavailable Primary Care Provider Unavailabl e Reason for Visit * Reason Comments New patient visit/needs medications Encounter Details Date Type Department Care Team (Latest Contact Info) Description 06/19/2025 10:00 AM EST Office Visit [facility] [address] [place] [phone] Name, MD Salo [address] [place] [phone] Acquired hypothyroidism (Primary Dx); Asthma, unspecified asthma severity, unspecified whether complicated, unspecified whether persistent Social History Tobacco Use Types Packs/Day Years Used Date Smoking Tobacco: Never Smokeless Tobacco: Never Tobacco Cessation:Counseling Given: Not Answered Alcohol Use Standard Drinks/Week Comments Never 0 (1 standard drink = 0.6 oz pur e alcohol) Comments No Sex and Gender Information Value Date Recorded Sex Assigned at Female 05/01/2022 10:15 AM EDT Legal Sex Female 10:15 AM EDT Gender Identity Female 05/01/2022 10:15 AM EDT Sexual Orientation Choose not to disclose 2021 10:15 AM EDT documented as of this encounter Last Filed Vital Signs Vital Sign Reading Time Taken Comments Blood Pressure 132/86 06/19/2025 10:03 AM EST Pulse 82 06/19/2025 10:03 AM EST Temperature 36.5 C (97.7 F) 06/19/2025 10:03 AM EST Respiratory Rate 18 06/19/2025 10:03 AM EST Oxygen Saturation 94% 06/19/2025 10:03 AM EST Inhaled Oxygen Concentration - - Weight 109 kg (241 lb 6.4 oz) 06/19/2025 10:03 A M EST Height 162.6 cm (5' 4 ) 06/19/2025 10:03 AM EST Body Mass Index 41.44 06/19/2025 10:03 AM EST documented in this encounter Progress Notes * Salo Dahl MD - 06/19/2025 10:00 AM EST Subjective Patient ID: Vivi Pereira is a 34 y.o. female who presents for New patient visit/needs medications. Patient comes to the walk-in visit to reestablish medical care. She has personal history of hypothyroidism and asthma. She has not used her thyroid medication for several months. She tells me that she has noted that she feels sluggish and tired after not using the medication for several weeks. In terms of her asthma she tells me her symptoms are worse in the winter. She describes having cough andwheezing 2 weeks ago following a viral URI. By the time of her visit today URI symptoms have resolved and she denies much cough or shortness of breath at the moment. Review of Systems Constitutional: Negative for chills and fever. HENT: Negative for sore throat. Respiratory: Negative for cough, shortness of breath and wheezing. Cardiovascular: Negative for chest pain, palpitations and leg swelling. Gastrointestinal: Negative for abdominal pain. Objective Vitals: 06/19/25 1003 BP: 132/86 BP Location: Left arm Patient Position: Sitting BP Cuff Size: Large adult Pulse: 82 Resp: 18 Temp: 97.7 ??F (36.5 ??C) TempSrc: Temporal SpO2: 94% Weight: 241 lb 6.4 oz (109 kg) Height: 5' 4 (1.626 m) Physical Exam Constitutional: Appearance: Normal appearance. Neck: Thyroid: No thyroid mass or thyromegaly. Cardiovascular: Rate and Rhythm: Normal rate and regular rhythm. Heart sounds: No murmur heard. No gallop. Pulmonary: Effort: Pulmonary effort is normal. No respiratory distress. Breath sounds: Normal breath sounds. No wheezing. Musculoskeletal: Right lower leg: No edema. Left lower leg: No edema. Lymphadenopathy: Cervical: No cervical adenopathy. Neurological: Mental Status: She is alert. Assessment/Plan Diagnoses and all orders for this visit: Acquired hypothyroidism Comments: Restart levothyroxine. Check blood work listed below Orders: - TSH W/Reflex to FT4; Future - levothyroxine (Synthroid, Levoxyl) 175 MCG tablet; Take 1 tablet (175 mcg) by mouth Once per day. Asthma, unspecified asthma severity, unspecified whether complicated, unspecified whether persistent Comments: I recommended to start Arnuity daily for asthma prevention. I refilled her rescue albuterol. Other orders - albuterol (Ventolin HFA) 108 (90 Base) MCG/ACT inhaler; INHALE 2 PUFFS BY MOUTH EVERY 4 TO 6 HOURS NEEDED - fluticasone furoate (Arnuity Ellipta) 100 MCG/ACT inhaler; Inhale 1 puff Once per day. Rinse mouth with water after use to reduce aftertaste and incidence of candidiasis. Do not swallow. Future Appointments Date Time Provider Department Center 07/22/2025 2:00 PM [facility] documented in this encounter Plan of Treatment Upcoming Encounters Date Type Department Care Team (Late st Contact Info) Description 07/22/2025 2:00 PM EST Office Visit [facility] [address] [place] [phone] Tony Boggs FNP [address] [place] [phone] Scheduled Orders Name Type Priority Associated Diagnoses Orde r Schedule TSH W/Reflex to FT4 Lab Routine Acquired hypothyroidism Expected: 06/19/2025 (Approximate), Expires: 06/19/2026 documented as of this encounter Visit Diagnoses Diagnosis Acquired hypothyroidism- Primary Unspecified hypothyroidism Asthma, unspecified asthma severity, unspecified whether complicated, unspecified whether persistent documented in this encounter
--- OUTSIDE RECORDS SUMMARY | 2025-06-19 12:06 | XMS_ITS | Encounter Summary ---
Author Organization [employer] Address [address] [place] [address] Care Team Providers Care Rolled Oats Mill Operator Name Role Phone Monica Zaragoza MD Primary Care Provide r Reason for Visit * Reason Onset Date Comments Med Refill 06/15/2025 Encounter Details Date Type Department Care Team (Late st Contact Info) Description 06/15/2025 Refill [facility] [address] [place] [phone] Monica Zaragoza MD [address] [place] [phone] Social History Tobacco Use Types Packs/Day Years Used Date Smoking Tobacco: Never Smokeless Tobacco: Never Alcohol Use Standard Drinks/Week Comments Never 0 (1 standard drink = 0.6 oz pur e alcohol) Comments No Sex and Gender Information Value Date Recorded Sex Assigned at Female 05/01/2022 10:15 AM EDT Legal Sex Female 10:15 AM EDT Gender Identity Female 05/01/2022 10:15 AM EDT Sexual Orientation Choose not to disclose 2021 10:15 AM EDT documented as of this encounter Plan of Treatment Upcoming Encounters Date Type Department Care Team (Late st Contact Info) Description 07/22/2025 2:00 PM EST Office Visit [facility] MED[facility]INE [address] [place] [phone] Tony Boggs FNP [address] [place] [address] documented as of this encounter Visit Diagnoses Not on filedocumented in this encounter Care Teams Rolled Oats Mill Operator Relationship Specialty Start Date End Date Monica Zaragoza MD [address] [place] [address] PCP - General Family Medicine 02/10/19 06/16/25 documented as of this encounter
--- OUTSIDE RECORDS SUMMARY | 2025-06-19 12:06 | XMS_ITS | Encounter Summary ---
Author Organization [employer] Address [address] [place] [address] [address] [place] [address] Care Team Providers Care Substation Operator Conversion Name Role Phone Monica Zaragoza MD Primary Care Provide r Reason for Visit * Reason Onset Date Comments Med Refill 06/15/2025 Encounter Details Date Type Department Care Team (Late Contact Info) Description 06/15/2025 Refill [facility] [address] [place] [address] Monica Zaragoza MD [address] [place] [phone] Acquired hypothyroidism Social History Tobacco Use Types Packs/Day Years [...] Encounters Date Type Department Care Team (Late Contact Info) Description 07/22/2025 2:00 PM EST Office Visit [facility] MEDICINE [address] [place] [phone] Tony Boggs FNP [address] [place] [address] documented as of this encounter Visit Diagnoses Diagnosis Acquired hypothyroidism Unspecified hypothyroidism documented in this encounter Care Teams Substation Operator Conversion Relationship Specialty Start Date End Date Monica Zaragoza MD [address] [place] [phone] PCP - General Family Medicine 02/10/19 06/16/25 documented as of this encounter
--- OUTSIDE RECORDS SUMMARY | 2025-06-19 12:06 | XMS_ITS | Encounter Summary ---
Author Organization [employer] Address [address] [place] [address] [address] [place] [address] Care Team Providers Care Management Trainee Marketing Name Role Phone Monica Zaragoza MD Primary Care Provide r Reason for Visit * Reason Comments Med Refill Encounter Details Date Type Department Care Team (Late Contact Info) Description 06/08/2025 Refill [facility] [address] [place], [place] [phone] Monica Zaragoza MD [address] [place] [phone] Acquired hypothyroidism Social History Tobacco Use Types [...] Description 07/22/2025 2:00 PM EST Office Visit [facility] [address] [place] [address] Tony Boggs FNP [address] [place] [address] documented as of this encounter Visit Diagnoses Diagnosis Acquired hypothyroidism Unspecified hypothyroidism documented in this encounter Care Teams Management Trainee Marketing Relationship Specialty Start Date End Date Monica Zaragoza MD [address] [place] [address] PCP - General Family Medicine 02/10/19 06/16/25 documented as of this encounter
--- OUTSIDE RECORDS SUMMARY | 2025-06-19 12:06 | XMS_ITS | Clinical Summary ---
Author Organization [employer] Address [address] [place] [address] [address] [place] [address] Care Team Providers Care School Speech Language Pathologist Name Role Phone Unavailable Primary Care Provider Unavailabl e Allergies No known active allergies Medications levothyroxine (Synthroid, Levoxyl) 175 MCG tabletIndications :Acquired hypothyroidism Take 1 tablet (175 mcg) by mouth Once per day. 90 tablet 5 11:11 AM EST 025 Active albuterol (Ventolin HFA) 108 (90 Base) MCG/ACT inhaler INHALE 2 PUFFS BY MOUTH EVERY 4 TO 6 HOURS NEEDED 18 g 5 11:11 AM EST 025 Active fluticasone furoate (Arnuity Ellipta) 100 MCG/ACT inhaler Inhale 1 puff Once per day. Rinse mouth with water after use to reduce aftertaste and incidence of candidiasis. Do not swallow. 1 each 11 5 11:11 AM EST 025 2025 Active albuterol (Ventolin HFA) 108 (90 Base) MCG/ACT inhaler INHALE 2 PUFFS BY MOUTH EVERY 4 TO 6 HOURS NEEDED 18 g 024 2024 Discontinued(R eorder (will not trigger notification to Pharmacy)) levothyroxine (Synthroid, Levoxyl) 175 MCG tabletIndications :Acquired hypothyroidism Take 1 tablet (175 mcg) by mouth Once per day. 90 tablet 025 2024 Discontinued(R eorder (will not trigger notification to Pharmacy)) Active Problems Problem Noted Date Diagnosed Date Acquired hypothyroidism 06/19/2025 Encounters Date Type Department Care Team Description 06/19/2025 10:00 AM EST Office Visit [facility] [address] [place] [address] Salo Dahl MD Acquired hypothyroidism (Primary Dx); Asthma, unspecified asthma severity, unspecified whether complicated, unspecified whether persistent 06/19/2025 Travel 06/17/2025 Telephone [facility] [address] [place] [address] Monica Zaragoza MD Medication Question 06/15/2025 Refill [facility] [address] [place] [address] Monica Zaragoza MD Acquired hypothyroidism 06/15/2025 Refill [facility] [address] [place] [address] Monica Zaragoza MD 06/08/2025 Refill [facility] [address] [place], [place] [phone] Monica Zaragoza MD Acquired hypothyroidism from Last 3 Months Social History Tobacco Use Types Packs/Day Years [...] not to disclose 2021 10:15 AM EDT Last Filed Vital Signs Vital Sign Reading [...] Mass Index 41.44 06/19/2025 10:03 AM EST Plan of Treatment Upcoming Encounters Date Type Department Care Team (Late st Contact Info) Description 07/22/2025 2:00 PM EST Office Visit [facility] [address] [place], [place] [phone] Tony Boggs FNP [address] [place], [place] [phone] Health Maintenance Due Date Last Done Comments Depression Screening 1990 SDOH Screening 1990 Disability Screening 1990 Alcohol/Substance Use Screening 2000 Family Planning (PISQ) 10/21/2003 HPV Vaccines (1 - 3-dose series) 10/21/2003 DTaP/Tdap/Td Vaccines (1 - Tdap) 10/21/2007 Hepatitis B Vaccines (1 of 3 - 19+ 3-dose series) 10/21/2007 Pneumococcal Vaccine: Pediatrics (0 to 5 Years) and At-Risk Patients (6 to 49) Years (1 of 2 - PCV) 10/21/2007 Dental Oral Exam 01/27/2011 07/29/2010, 07/29/2010 Dental Prophylaxis 06/22/2011 12/20/2010 Dental X-Ray: Full Mouth 07/30/2013 07/29/2010 Dental X-Ray: Bitewings 01/10/2024 01/09/20 23, 11/19/2019, 07/29/2010 COVID-19 Vaccine (1 - 2024-2 6 season) 2025 Influenza Vaccine (#1) 2025 09/13/2021 Tobacco Screening 06/19/2026 06/19/2025 Pap Smear 09/12/2026 09/13/2023 Lipid Panel 09/13/2026 09/13/2021 Cervical Cancer Screening 09/12/2028 HPV/Cotest 09/12/2028 09/13/2023 Zoster Vaccines (1 of 2) 2038 RSV Patients and Patients Aged 60 years or older (1 - 1-dose 75+ series) 10/21/2063 HIV Screening Completed 09/13/2021 Hepatitis C Screening Completed 09/13/2021 HIB Vaccines Aged Out No longer eligi ble based on patient's age to complete this topic Hepatitis A Vaccines Aged Out No long er eligible based on patient's age to complete this topic IPV Vaccines Aged Out No longer eligi ble based on patient's age to complete this topic Meningococcal B Vaccine Aged Out No l onger eligible based on patient's age to complete this topic Meningococcal Vaccine Aged Out No vishal lesa eligible based on patient's age to complete this topic RSV under 20 months Aged Out No longe r eligible based on patient's age to complete this topic Rotavirus Vaccines Aged Out No longer eligible based on patient's age to complete this topic Procedures Procedure Name Priority Date/Time Associated Diagnosis Comments HPV MRNA E6/E7 REFLEX TO HPV 16, 18/45 Routine 09/13/2023 8:21 AM EDT PAP SMEAR Routine 09/13/2023 8:21 AM EDT BITEWING - SINGLE RADIOGRAPHIC IMAGE Routine 01/08/2023 11:30 AM EDT [facility] HISTORICAL HEPATITIS C AB W/REFL TO HCV RNA, QN, PCR Routine 09/13/2021 11:43 AM EDT HIV 1/2 ANTIGEN/ANTIBODY, FOURTH GENERATION W/RFL Routine 09/13/2021 11:43 AM EDT LIPID PANEL, STANDARD Routine 09/13/2021 11:43 AM EDT PROPHYLAXIS - ADULT Routine 12/20/2010 1 2:00 AM EDT INTRAORAL - COMPLETE SERIES OF RADIOGRAPHIC IMAGES Routine 07/29/2010 12:00 AM EST PERIODIC ORAL EVALUATION - ESTABLISHED PATIENT Routine 07/29/2010 12:00 AM EST from Last 3 Months or Most Recently Relevant to Health Maintenance Results * HPV mRNA E6/E7 w/Reflex to HPV Genotypes 16, 18/45 (09/13/2023 8:21 AM EDT) HPV nRNA E6/E7 Not Detected Not Detected [facility] Comment:Methodology: Transcr iption-Mediated AmplificationThis assay detects E6/E7 viral messenger RNA (mRNA) from 14high-risk HPV types (16,18,31,33,35,39,45,51,52,56,58,59,66,68).Cervical sources are required for HPV testing.If a vaginal source from a patient who has had atotal hysterectomy with removal of cervix wassubmitted, please contact the testing laboratoryfor alternative testing options.For additional information, please refer tohttp://education.[employer] (SAM)/faq/DXM223q3(This link if provided for information/educational purposes only.)THIS TEST WAS PERFORMED AT:[employer] [place] [id number] ROTHMAN MD HPV mRNA E6/E7 [facility] HPV 16 RNA [facility] HPV 18/45 RNA [facility] 09/13/2023 8:21 AM EDT 09/14/2023 9:00 AM EDT us Generic External Data Provider LAB CYTOLOGY MANDI PINA Final Result [facility] [address] [place] [address] [phone] * Pap Smear (09/13/2023 8:21 AM EDT) 09/13/2023 8:21 AM EDT 09/14/2023 9:00 AM EDT Narrative [facility] - 09/27/2023 10:05 AM EDT ----- ------- Name: Vivi Pereira Corby Age/Sex: 32/F : 1990 Unit#: [id number] Attend Dr: Miguel Mei MD Re09/13/23 Status: DEP REF Location: [facility] Disch: ----- ------- SPEC : [id number] RECD: 09/14/23 STATUS: CONNER TRAN NUM: [id number] HAYDER: 09/13/[address] [facility] DR: Miguel Mei MD ENTERED: 09/14/23 SP TYPE: Pap Smr TRACEY DR: ORDERED: Pap Smear, PAP path review Interpretation General Category: Negative for intraepithelial lesion/malignancy. Adequacy: Endocervical component absent. Interpretation: Reactive cellular changes. Many endometrial cells noted. HPV mRNA E6/E7: Not Detected This assay detects E6/E7 viral messenger RNA (mRNA) from 14 high-risk HPV types (16, 18, 31, 33, 35, 39, 45, 51, 52, 56, 58, 59, 66, 68) HPV testing performed by [employer], [place], [place]. See reference laboratory portion of the EMR for entire report. Clinical Information LMP: 08/23/23 Previous PAP test: Unknown date/findings Other history: Abnormal uterine and vaginal bleeding Material Received ThinPrep-Cervical ----- ------- Signed (signature on file) Thuy Babcock 09/27/23 1005 ----- ------- END OF REPORT Generic External Data Provider LAB CYTOLOGY MANDI PINA Final Result [facility] [address] [place] [address] [phone] * HEPATITIS C AB W/REFL TO HCV RNA, QN, PCR (09/13/2021 11:43 AM EDT) HEPATITIS C ANTIBODY NON-REACT CRISTIAN NON-REACT CRISTIAN [facility] INDEX 0.03 <1.00 [facility] Comment: HCV antibody was non-reactive. There is no laboratory evidence of HCV infection. In most cases, no further action is required. However, if recent HCV exposure is suspected, a test for HCV RNA (test code 68236) is suggested. For additional information please refer to http://education.Surveying And Mapping (SAM)/faq/RIB66b1 (This link is being provided for informational/ educational purposes only.) 09/13/2021 11:4 3 AM EDT Monica Figueroa MD HISTORICAL/NON ORDERA BLE LABS Final Result Performing Organization Address City/[facility]/ZIP Co de Phone Number [facility] [address] * HIV 1/2 ANTIGEN/ANTIBODY,FOURTH GENERATION W/RFL (09/13/2021 11:43 AM EDT) HIV-1/2 ANTIGEN AND ANTIBODIES, 4TH GENERATION W/ REFLEX NON-REACT CRISTIAN NON-REACT CRISTIAN [facility] Comment: HIV-1 antigen and HIV-1/HIV-2 antibodies were not detected. There is no laboratory evidence of HIV infection. PLEASE NOTE: This information has been disclosed to you from records whose confidentiality may be protected by state law. If your state requires such protection, then the state law prohibits you from making any further disclosure of the information without the specific written consent of the person to whom it pertains, or as otherwise permitted by law. A general authorization for the release of medical or other information is NOT sufficient for this purpose. For additional information please refer to http://[employer].Sur[employer] Mapping (SAM)/faq/OOS982 (This link is being provided for informational/ educational purposes only.) The performance of this assay has not been clinically validated in patients less than 2 years old. 09/13/2021 11:4 3 AM EDT Monica Figueroa MD LAB BLOOD ORDERABLES Final Result [facility] [address] * (ABNORMAL) LIPID PANEL, STANDARD (09/13/2021 11:43 AM EDT) Chol/HDLC Ratio 7.6(H) <5.0 (calc) [facility] Cholesterol, Total 298(H) <200 mg/dL [facility] HDL Cholesterol 39(L) > OR = 50 mg/dL [facility] LDL Cholesterol SEE COMMENT mg/dL (calc) [facility] Comment: LDL cholesterol not calculated. Triglyceride levels greater than 400 mg/dL invalidate calculated LDL results. Reference range: <100 Desirable range <100 mg/dL for primary prevention; <70 mg/dL for patients with CHD or diabetic patients with > or = 2 CHD risk factors. LDL-C is now calculated using the Terrence-Tim calculation, which is a validated novel method providing better accuracy than the Friedewald equation in the estimation of LDL-C. Terrence GORE et al. LOYD. 2013;310(19): 6887-8094 (http://education.[employer]/faq/KPX671) Non-HDL Cholesterol 259(H) <130 mg/dL (calc) [facility] Comment: Non-HDL level > or = 220 is very high and may indicate genetic familial hypercholesterolemia (FH). Clinical assessment and measurement of blood lipid levels should be considered for all first-degree relatives of patients with an FH diagnosis. For patients with diabetes plus 1 major ASCVD risk factor, treating to a non-HDL-C goal of <100 mg/dL (LDL-C of <70 mg/dL) is considered a therapeutic option. Triglycerides 474(H) <150 mg/dL [facility] Comment: If a non-fasting specimen was collected, consider repeat triglyceride testing on a fasting specimen if clinically indicated. Lester et al. J. of Clin. Lipidol. 2015;9:129-169. 09/13/2021 11:4 3 AM EDT Monica Figueroa MD LAB BLOOD ORDERABLES Final Result [facility] [address] [place] [address], from Last 3 Months or Most Recently Relevant to Health Maintenance Insurance [facility] C3 DENTAL-[facility] MEDICAID STAND ADULT
--- OUTSIDE RECORDS SUMMARY | 2025-06-19 12:06 | XMS_ITS | Encounter Summary ---
Author Organization [email or web address] Address [address] [place] [address] [place] [address] Care Team Providers Care Butadiene Convertor Operator Name Role Phone Unavailable Primary Care Provider Unavailabl e Encounter Details Date Type Department Care Team (Latest Contact Info) Description 06/19/2025 Travel Social History Tobacco Use Types Packs/Day Years [...] Description 07/22/2025 2:00 PM EST Office Visit [facility] [address] [place] [address] Tony Boggs FNP [address] [place] [address] documented as of this encounter Visit Diagnoses Not on filedocumented in this encounter
--- OUTSIDE RECORDS SUMMARY | 2025-06-19 12:06 | XMS_ITS | Encounter Summary ---
Author Organization [employer] Address [address] [place] [address] [address] [place] [address] Care Team Providers Care Emergency Management Specialist Name Role Phone Unavailable Primary Care Provider Unavailabl e Reason for Visit * Reason Onset Date Comments Medication Question 06/17/2025 Encounter Details Date Type Department Care Team ([facility] st Contact Info) Description 06/17/2025 Telephone [facility] [address] [place] [address] Monica Zaragoza MD [address] [place] [address] Medication Question Social History Tobacco Use Types Packs/Day Years [...] AM EDT documented as of this encounter Miscellaneous Notes * Telephone Encounter - Destiny Torres RN - 06/17/2025 9:19 AM EST TC placed to patient [phone] in regards to below message. Patient last seen in office 04/20/2022, patient had a PE on 01/30/25 however no showed-patient is now considered a new patient d/t last being seen >3 years ago. Patient has not had TSH checked since 08/2023 which was ordered by Dr. Mei. Dr. Lee last sent levothyroxine to pharmacy in 12/04/2024 for a 3 month supply with no refill s. Patient would have been out of medication around 03/06/25 if taken consistently. Patient advised she is not currently considered a patient of [facility] at this time and will need to become re-established.Patient advised providers cannot send refills on medications when they have not seen the patient in>3 years. Patient is upset stating she has been without medication and needs it HERBERT. RN re-iterated, patient would be out of medication in 03/2025 if taken as Rx'd. Patient reported well at first I don't have any symptoms but as time goes on I start to feel tired . RN advised patient a messagewould be sent to the new patient pool and RN would inform of the need for levothyroxine to see if [facility] appointment can be expedited. Patient informed for any urgent/immediate needs, patient can come toWIC to be evaluated. Patient to f/u PRN. * Telephone Encounter - Britni Jolly - 06/17/2025 8:10 AM EST Tc from pt requesting refill on medication that refused , she stating needing meds urgently . Contact pt at [phone] documented in this encounter Plan of Treatment Upcoming Encounters Date Type Department Care Team (Late st Contact Info) Description 07/22/2025 2:00 PM EST Office Visit [facility] [address] [place] [address] Tony Boggs FNP [address] [place] [address] documented as of this encounter Visit Diagnoses Not on filedocumented in this encounter
[2025-06-19 14:19] LABS: Free T4 (Free Thyroxine) < 0.42 ng/dL (0.71-1.85)
== END 2025-06-19 10:30 | disposition home or self-care (01) ==
LOC: HO.HHCL 10:29
PROVIDERS: Visit Provider Internal Medicine Geriatric Medicine
DX: E03.9 Hypothyroidism, unspecified (principal)
CPT/HCPCS: 36415; 84439; 84443